=== PATIENT | male | born 1955 | race Caucasian/White ===

== ENCOUNTER → 2017-03-29 16:15 | Emergency (ER) | payer BC ==
[~2017-03-29 16:15] MED LIST: Cyclobenzaprine TAB* 10 MG PO ONE; HYDROcodone/ACETAMIN 5-325 MG* 1 TAB PO ONE
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
[2017-03-29 19:05] VITALS: BP 119/81
== END | disposition home or self-care (01) ==
LOC: ED 16:15
DX: M54.5 Low back pain (principal)
CPT/HCPCS: 99282; A9270-GY